=== PATIENT | female | born 1940 | race Caucasian/White ===

== ENCOUNTER 2018-01-27 17:48 | Inpatient (IN) ==
[2018-01-27] MEDS ORDERED: cloNIDine HCL 0.1 MG TABLET SL SCH ×2 (18:30→21:11)
[2018-01-27] MEDS ORDERED: cefTRIAXone 1 GM VIAL IV ONE (18:47)
[2018-01-27 19:17] LABS: ALT/SGPT 9 U/l (0-40); Albumin 4.3 gm/dL (3.2-5.2); Albumin/Globulin Ratio 1.3 (1.0-2.3); Alkaline Phosphatase 65 U/L (39-117); Basophils # (Auto) 0 K/mcL (0.0-0.3); Basophils % (Auto) 0.3 % (0.0-2.0); Blood Urea Nitrogen 14 mg/dl (8-23); C-Reactive Protein 13.3 mg/dl (0.0-0.8); Eosinophils # (Auto) 0 K/mcL (0.0-0.7); Eosinophils % (Auto) 0 % (0.0-7.0); Granulocytes % (Auto) 86.1 % (38.0-78.0); Lymphocytes % (Auto) 9.4 % (15.5-49.0); Mean Cell Volume 86.2 fL (80.0-100.0); Mean Corpuscular HGB Conc 33.6 g/dL (31.0-36.0); Mean Corpuscular Hemoglobin 28.9 pg (26.0-34.0); Monocytes # (Auto) 0.5 K/mcL (0.1-0.9); Monocytes % (Auto) 4.2 % (1.0-12.0); Platelet Count 185 K/mcL (140-440); RBC 4.66 M/mcL (4.00-5.20); Red Cell Distribution Width 16.7 % (11.5-14.5)
[2018-01-27] MEDS ORDERED: METOPROLOL SUCCINATE 25 MG TAB.XL.24H PO ONE (19:59)
--- NOTE | 2018-01-27 20:42 | Ultrasound Report ---
CLINICAL INFORMATION: Right leg pain and swelling TECHNIQUE: Grayscale and color flow Doppler spectral imaging COMPARISON: None. FINDINGS: Negative examination for deep venous thrombosis. Negative right common femoral vein, superficial femoral vein, popliteal vein. Negative calf veins. Greater and lesser saphenous veins are negative IMPRESSION: Negative right lower extremity deep venous ultrasound Interpreted and Authenticated by: Derrick Matos 01/27/18
--- NOTE | 2018-01-27 20:50 | Emergency Department Note ---
Lower Extremity Injury HPI - General Chief Complaint: Extremity Injury, Lower Stated Complaint: Right leg pain Time Seen by Provider: 01/27/18 18:11 Source: family Mode of arrival: ambulatory Limitations: no limitations - History of Present Illness HPI Narrative: 77-year-old female presents with right lower extremity redness and pain. She was treated with Bactrim a few weeks ago and it got better. She is unable to bear weight on this leg today. She has had one episode of vomiting. She also has high blood pressure because she refused her medications earlier today. She states when she first got here she had some pressure in her head but no longer feels that. She takes metoprolol as well as clonidine and nifedipine. She denies pain at rest. The right leg is warm up to the thigh. No open wounds. She takes clopidogrel. She is afebrile. - Related Data Home Medications Medication Instructions Recorded Confirmed Albuterol Sulfate [Proair Hfa] 2 puff INH QIDP PRN 06/03/16 06/03/16 Buprenorphine [Butrans] 10 mcg TD TH 06/03/16 06/07/16 Celecoxib [Celebrex] 200 mg PO DAILY 06/03/16 06/03/16 Clopidogrel [Plavix] 75 mg PO DAILY 06/03/16 06/03/16 Ferrous Sulfate 325 mg PO QAMCC 06/03/16 06/03/16 Furosemide [Lasix] 40 mg PO DAILY 06/03/16 06/03/16 Gluc HCl/Csa/Collagen/Hyalur A 1 cap PO TID 06/03/16 06/03/16 [Glucosamine Chondroitin Cap] Ipratropium [place] [Atrovent Hfa] 1 puff INH BID 06/03/16 06/03/16 Levothyroxine Sodium [Synthroid] 137 mcg PO QAMAC 06/03/16 06/03/16 Magnesium Hydroxide [Milk of 30 ml PO DAILYP PRN 06/03/16 06/03/16 Magnesia] Magnesium Oxide 400 mg PO BID 06/03/16 06/03/16 Methylcellulose (with Sugar) 1 dose PO DAILY 06/03/16 06/03/16 [Citrucel Powder] Metoprolol Succinate [Toprol Xl] 50 mg PO DAILY 06/03/16 06/03/16 NIFEdipine [Nifedical Xl] 60 mg PO DAILY 06/03/16 06/03/16 Nitroglycerin [Nitrostat] 0.4 mg SL Q5M PRN 06/03/16 06/03/16 Nystatin 1 dose TOPICAL BIDP PRN 06/03/16 06/03/16 Omeprazole [Prilosec] 20 mg PO BIDAC 06/03/16 06/03/16 Potassium Chloride [Kdur] 10 meq PO BIDCC 06/03/16 06/03/16 Sennosides [Senna Laxative] 2 tab PO HSP PRN 06/03/16 06/03/16 Simethicone [Gas-X] 80 mg PO TIDP PRN 06/03/16 06/03/16 Simvastatin [Zocor] 20 mg PO HS 06/03/16 06/03/16 Tiotropium [place] [Spiriva] 18 mcg INH DAILY 06/03/16 06/03/16 Umeclidinium [place] [Incruse 1 puff INH DAILY 06/03/16 06/03/16 Ellipta] cloNIDine HCL [Catapres] 0.2 mg PO TID 06/03/16 06/03/16 metFORMIN [Glucophage] 500 mg PO BIDCC 06/03/16 06/03/16 tiZANidine [Zanaflex] 4 mg PO TIDP PRN 06/03/16 06/03/16 traMADol [Ultram] 50 mg PO TIDP PRN 06/03/16 06/03/16 Previous Rx's Medication Instructions Recorded Cefdinir 300 mg PO BID #6 capsule 06/07/16 HYDROcodone/APAP 5/325MG [[place] 1 tab PO Q4HP PRN #20 tablet 06/07/16 5-325Mg] Allergies Allergy/AdvReac Type Severity Reaction Status Date / Time Penicillins Allergy Mild Rash Verified 06/03/16 11:58 aspirin AdvReac Mild Nausea Verified 06/03/16 11:58 codeine AdvReac Mild Vomiting Verified 06/03/16 11:58 Sulfa (Sulfonamide AdvReac Mild Vomiting Verified 06/03/16 11:58 Antibiotics) Review of Systems All systems ED: reviewed and negative except as stated. Past Medical History - Past Medical History Medical history: Reports: CHF, COPD, coronary artery disease, DM, GERD, hyperlipidemia, hypertension, thyroid disease Psychiatric history: Reports: no psych history [employer] PROFESSIONAL history: Reports: non-contributory Surgical history ED: Reports: other (hemorrhoid and back surgery) Family history: Reports: non-contributory - Social History smoking status: Unknown if ever smoked Alcohol use: Reports: None Physical Exam Right lower extremity shows erythema up to the thigh. Tender in the calf. Negative Homans sign. She has swelling in that leg but not more than the left. Limitations: no limitations General appearance: alert, in no apparent distress Head: atraumatic Eye: Present: normal appearance. Absent: conjunctival injection Neck: Present: normal inspection, full ROM Chest: Present: normal inspection, symmetric chest wall rise Respiratory: Present: normal lung sounds bilaterally Cardiovascular: Present: regular rate, normal heart sounds Abdominal: Present: soft, normal bowel sounds. Absent: tenderness Neurological: Present: alert, oriented X3 Psychiatric: Present: normal affect, normal mood Skin: Present: warm, dry, intact Course Course Narrative: Blood pressure somewhat improved with metoprolol and clonidine. She will be admitted due to severe cellulitis. She has an elevated lactic acid at 2.3. Vital Signs Temperature 98.1 F 01/27/18 17:48 Pulse Rate 86 01/27/18 17:48 Respiratory Rate 16 01/27/18 17:48 Blood Pressure 169/97 01/27/18 17:48 Pulse Oximetry (%) 98 01/27/18 17:48 Temperature 98.1 F 01/27/18 17:48 Pulse Rate 69 01/27/18 20:24 Respiratory Rate 19 01/27/18 20:24 Blood Pressure 185/78 01/27/18 20:24 Pulse Oximetry (%) 93 01/27/18 20:24 Extremity Injury, Lower - Lab Data Lab results reviewed: Yes I reviewed the patient's lab results. Result diagrams: 01/27/18 18:02 01/27/18 18:02 Lab Results 01/27/18 01/27/18 01/27/18 Range/Units 18:02 18:02 18:20 WBC 10.8 (4.5-11.0) K/mcL RBC 4.66 (4.00-5.20) M/mcL Hgb 13.5 (12.0-15.0) g/dL Hct 40.2 (36.0-48.0) % MCV 86.2 (80.0-100.0) fL MCH 28.9 (26.0-34.0) pg MCHC 33.6 (31.0-36.0) g/dL RDW 16.7 H (11.5-14.5) % Plt Count 185 (140-440) K/mcL MPV 8.0 (7.4-10.4) fL Gran % 86.1 H (38.0-78.0) % Lymph % (Auto) 9.4 L (15.5-49.0) % [place] % (Auto) 4.2 (1.0-12.0) % Eos % (Auto) 0 (0.0-7.0) % Baso % (Auto) 0.3 (0.0-2.0) % Gran # 9.3 H (1.8-8.0) K/mcL Lymph # (Auto) 1.0 L (1.5-4.8) K/mcL [place] # (Auto) 0.5 (0.1-0.9) K/mcL Eos # (Auto) 0 (0.0-0.7) K/mcL Baso # (Auto) 0 (0.0-0.3) K/mcL VBG Lactic Acid 2.3 H (0.5-2.2) mmol/L Sodium 135 (133-145) mmol/L Potassium 3.8 (3.3-5.1) mmol/L Chloride 95 L (96-108) mmol/L Carbon Dioxide 22 (22-30) mmol/L Anion Gap 18.0 H (8-16) BUN 14 (8-23) mg/dl Creatinine 0.9 (0.6-1.1) mg/dl GFR Calculation 61 Glucose 168 H (70-105) mg/dL Calcium 9.0 (8.6-10.4) mg/dl Total Bilirubin 0.6 (0.0-1.0) mg/dL AST 12 (0-37) U/l ALT 9 (0-40) U/l Alkaline Phosphatase 65 (39-117) U/L C-Reactive Protein 13.3 H (0.0-0.8) mg/dl Total Protein 7.5 (5.9-8.4) gm/dL Albumin 4.3 (3.2-5.2) gm/dL Globulin 3.2 (2.2-3.7) gm/dL Albumin/Globulin Ratio 1.3 (1.0-2.3) - Radiology Data Radiology results reviewed: Yes I reviewed the patient's radiology results. negative for DVT Disposition Pt seen by CNA INSTRUCTOR/PA only: Yes Clinical Impression: Cellulitis, Sepsis Disposition: Xfer As Inpt ([facility]) Condition: Fair Referrals: Vanessa Wills [Primary Care Provider] -
[2018-01-27] MEDS ORDERED: ACETAMINOPHEN 325 MG TABLET PO PRN (21:11)
[2018-01-27] MEDS ORDERED: VANCOMYCIN PER PHARMACY IV ONE (21:11)
[2018-01-27] MEDS ORDERED: DEXTROSE 50% 50 ML VIAL IV PRN (21:11)
[2018-01-27] MEDS ORDERED: ONDANSETRON 4 MG/2 ML VIAL IV PRN (21:11)
[2018-01-27] MEDS ORDERED: DEXTROSE 31 GM ORAL.SUSP PO PRN (21:11)
[2018-01-27] MEDS ORDERED: oxyCODONE/APAP 5/325MG TABLET PO PRN (21:11)
[2018-01-27] MEDS: METOPROLOL TARTRATE 5 MG/5 ML VIAL IV SCH (21:24)
[2018-01-27] MEDS: INSULIN LISPRO 1 UNIT/0.01 ML UNIT SQ SCH (21:43)
[2018-01-27] MEDS: 0.9 % SODIUM CHLORIDE 10 ML SYRINGE IV SCH (21:44)
[2018-01-27] MEDS ORDERED: MAGNESIUM HYDROXIDE 30 ML ORAL.SUSP PO ONE (21:56)
--- NOTE | 2018-01-27 22:03 | Internal Med History&Physical ---
Medical - H&P: HPI Patient information: Note initiated : 01/27/18 at 9:59 pm Service Date, if different from initiated Date: [] Patient: Poppy De La Rosa 77 y/o F admitted on 01/27/18 for Right leg pain. Chief Complaint: [] History of present illness: Ms. De La Rosa is a 77 year old Female who is a resident of [facility] presents to the ER today for evaluation of redness in the right leg. The patient notes that she has not been feeling well for the last 2 weeks. She notes that her leg has been bothering her, it was red and swollen. She was seen by her doctor at the [facility], who prescribed her antibiotics. It is likely that the antibiotic was Bactrim. The patient condition improved with treatment. The antibiotic was finished 3 days ago. Since this morning the patient's leg has been swollen and the patient's leg has increased erythema as well as increased warmth to touch. The patient was therefore sent to the ER for further evaluation. The patient denies any other acute symptoms. She has chronic headaches, no changes in vision or hearing no difficulty in swallowing denies any chest pain or shortness of breath she had some nausea and vomiting, no blood in the vomitus. She denies any diarrhea, has constipation notes has not passed bowel movements for a few days. She denies any urinary complaints. She has swelling in both lower extremities right more than the left, erythema on the right leg. No acute joint pains no acute skin rashes no new psychiatric complaints. Patient's daughter was by the bedside. Patient's POST form noted that the patient was DNR, however the patient's daughter noted that the patient did not wish to be DNR but wants to be full code. Patient will be treated as full code for now. In the emergency room patient was afebrile and had stable vital signs. Patient WC count was 10.8, hemoglobin 13 platelet 185. Left lites were stable creatinine 0.9 glucose 168. Patient had elevated lactic acid of 2.3. Ultrasound of the right lower extremity was negative for DVT. Given that the patient had failed outpatient treatment with Bactrim and the patient had worsening cellulitis the patient is being admitted to the hospital for further management All systems: reviewed and no additional remarkable complaints except as stated Medical - H&P: PM Medical history: Medical History Metabolic acidosis (Acute) Acute renal failure (Acute) Severe sepsis with acute organ dysfunction (Acute) Hypertension Hypothyroidism COPD Reflux disease Diabetes type 2 Degenerative joint disease Chronic pain Pertinent family history: Not relevant reviewed Social history: Lives in a care center, ex-smoker denies recreational drug use Medical - H&P: Meds Home Medications Medication Instructions Recorded Confirmed Type Albuterol Sulfate [Proair Hfa] 2 puff INH QIDP PRN 06/03/16 06/03/16 History Buprenorphine [Butrans] 10 mcg TD TH 06/03/16 06/07/16 History Celecoxib [Celebrex] 200 mg PO DAILY 06/03/16 06/03/16 History Clopidogrel [Plavix] 75 mg PO DAILY 06/03/16 06/03/16 History Ferrous Sulfate 325 mg PO QAMCC 06/03/16 06/03/16 History Furosemide [Lasix] 40 mg PO DAILY 06/03/16 06/03/16 History Gluc HCl/Csa/Collagen/Hyalur A 1 cap PO TID 06/03/16 06/03/16 History [Glucosamine Chondroitin Cap] Ipratropium [place] [Atrovent Hfa] 1 puff INH BID 06/03/16 06/03/16 History Levothyroxine Sodium [Synthroid] 137 mcg PO QAMAC 06/03/16 06/03/16 History Magnesium Hydroxide [Milk of 30 ml PO DAILYP PRN 06/03/16 06/03/16 History Magnesia] Magnesium Oxide 400 mg PO BID 06/03/16 06/03/16 History Methylcellulose (with Sugar) 1 dose PO DAILY 06/03/16 06/03/16 History [Citrucel Powder] Metoprolol Succinate [Toprol Xl] 50 mg PO DAILY 06/03/16 06/03/16 History NIFEdipine [Nifedical Xl] 60 mg PO DAILY 06/03/16 06/03/16 History Nitroglycerin [Nitrostat] 0.4 mg SL Q5M PRN 06/03/16 06/03/16 History Nystatin 1 dose TOPICAL BIDP PRN 06/03/16 06/03/16 History Omeprazole [Prilosec] 20 mg PO BIDAC 06/03/16 06/03/16 History Potassium Chloride [Kdur] 10 meq PO BIDCC 06/03/16 06/03/16 History Sennosides [Senna Laxative] 2 tab PO HSP PRN 06/03/16 06/03/16 History Simethicone [Gas-X] 80 mg PO TIDP PRN 06/03/16 06/03/16 History Simvastatin [Zocor] 20 mg PO HS 06/03/16 06/03/16 History Tiotropium [place] [Spiriva] 18 mcg INH DAILY 06/03/16 06/03/16 History Umeclidinium [place] [Incruse 1 puff INH DAILY 06/03/16 06/03/16 History Ellipta] cloNIDine HCL [Catapres] 0.2 mg PO TID 06/03/16 06/03/16 History metFORMIN [Glucophage] 500 mg PO BIDCC 06/03/16 06/03/16 History tiZANidine [Zanaflex] 4 mg PO TIDP PRN 06/03/16 06/03/16 History traMADol [Ultram] 50 mg PO TIDP PRN 06/03/16 06/03/16 History Cefdinir 300 mg PO BID #6 capsule 06/07/16 Rx HYDROcodone/APAP 5/325MG [[place] 1 tab PO Q4HP PRN #20 tablet 06/07/16 Rx 5-325Mg] Allergies Allergy/AdvReac Type Severity Reaction Status Date / Time Penicillins Allergy Mild Rash Verified 06/03/16 11:58 aspirin AdvReac Mild Nausea Verified 06/03/16 11:58 codeine AdvReac Mild Vomiting Verified 06/03/16 11:58 Sulfa (Sulfonamide AdvReac Mild Vomiting Verified 06/03/16 11:58 Antibiotics) Medical - H&P: Exam - Constitutional Vitals: Temp Pulse Resp BP Pulse Ox 98.1 F 70 20 158/69 93 01/27/18 21:15 01/27/18 21:15 01/27/18 21:15 01/27/18 21:15 01/27/18 21:15 Exam: GENERAL: The patient is a well-developed, well-nourished in no apparent distress. Is sleepy today but oriented x3. VITAL SIGNS: Reviewed and as noted elsewhere. HEENT: Head is normocephalic and atraumatic. Extraocular muscles are intact. Pupils are equal, round, and reactive to light. Nares appeared normal. Mouth appears any without lesions. Mucous membranes are dry NECK: Normal to inspection, Supple, No lymphadenopathy or thyromegaly. LUNGS: Air entry equal on both sides, no wheezing, crackles or rhonchi noted. No accessory muscles of respiration HEART: Regular rate and rhythm normal, S1 and S2 heard, no Gallop, S3 or Rub Noted, ABDOMEN: Soft, nontender, and nondistended. Hypoactive bowel sounds. No hepatosplenomegaly was noted. EXTREMITIES: No cyanosis, clubbing, rash, lesions or edema. Right lower extremity has erythema, erythema extends from above the ankle to lower one third of the thigh, no crepitus no skip lesions noted, pedal pulses present NEUROLOGIC: Cranial nerves II through XII are grossly intact. Motor and Sensory System Grossly Intact PSYCHIATRIC: Normal affect, Normal Mood. Appropriate Behavior. SKIN: No ulceration or wounds noted, No jaundice, No rash noted. [except as mentioned above] Medical - H&P: Reslt - Labs CBC & Chem 7: 01/27/18 18:02 01/27/18 18:02 Labs: Short CBC 01/27/18 Range/Units 18:02 WBC 10.8 (4.5-11.0) K/mcL Hgb 13.5 (12.0-15.0) g/dL Hct 40.2 (36.0-48.0) % Plt Count 185 (140-440) K/mcL BMP 01/27/18 18:02 Sodium 135 Potassium 3.8 Chloride 95 L Carbon Dioxide 22 BUN 14 Creatinine 0.9 Glucose 168 H Calcium 9.0 Liver Function 01/27/18 Range/Units 18:02 Total Bilirubin 0.6 (0.0-1.0) mg/dL AST 12 (0-37) U/l ALT 9 (0-40) U/l Alkaline Phosphatase 65 (39-117) U/L Albumin 4.3 (3.2-5.2) gm/dL Medical - H&P: A/P - Narrative A/P Narrative: A/P Cellulitis, failed outpatient treatment Lactic Acidosis Diabetes Hypertension Chronic Pain Hypothyroidism Degenerative Joint Disease Constipation secondary to opiates? Plan Admit to med surg IV fluids and IV antibiotics lactic acidosis secondary to metformin vs infection. Pt otherwise does not appear very sick trend lactate IV ceftazidine and IV vancomycin for cellulitis for now blood cultures sent, await results Resume home medications as appropriate Monitor blood pressure Full code Diabetic diet Heparin subcutaneous for DVT prophylaxis Plan of care reviewed with the patient and the daughter they had no complaints or concerns
[2018-01-27] MEDS: cefTAZidime 1 GM VIAL IV SCH (22:15)
[2018-01-27] MEDS: metroNIDAZOLE 500 MG/100 ML BAG IV SCH (22:16)
[2018-01-27] MEDS ORDERED: MAGNESIUM HYDROXIDE 30 ML ORAL.SUSP ONE (22:25)
[2018-01-27] MEDS: HEPARIN 5,000 UNIT/ML VIAL SQ SCH (22:35)
[2018-01-27] MEDS: VANCOMYCIN 1,000 MG in 0.9 % SODIUM CHLORIDE 250 ML IV SCH (23:40)
[2018-01-28] MEDS: metroNIDAZOLE 500 MG/100 ML BAG IV SCH ×3 (06:10→21:47)
[2018-01-28 06:11] LABS: Basophils # (Auto) 0 K/mcL (0.0-0.3); Basophils % (Auto) 0.1 % (0.0-2.0); Eosinophils # (Auto) 0.2 K/mcL (0.0-0.7); Eosinophils % (Auto) 3.8 % (0.0-7.0); Granulocytes % (Auto) 77.7 % (38.0-78.0); Lymphocytes # (Auto) 0.6 K/mcL (1.5-4.8); Lymphocytes % (Auto) 10.8 % (15.5-49.0); Mean Cell Volume 85.1 fL (80.0-100.0); Mean Corpuscular HGB Conc 33.8 g/dL (31.0-36.0); Mean Corpuscular Hemoglobin 28.7 pg (26.0-34.0); Monocytes # (Auto) 0.5 K/mcL (0.1-0.9); Monocytes % (Auto) 7.6 % (1.0-12.0); Platelet Count 150 K/mcL (140-440); RBC 3.78 M/mcL (4.00-5.20); Red Cell Distribution Width 16.3 % (11.5-14.5)
[2018-01-28] MEDS: 0.9 % SODIUM CHLORIDE 10 ML SYRINGE IV SCH ×3 (06:33→21:06)
[2018-01-28 06:47] LABS: ALT/SGPT 7 U/l (0-40); Albumin 3.1 gm/dL (3.2-5.2); Albumin/Globulin Ratio 1.1 (1.0-2.3); Alkaline Phosphatase 50 U/L (39-117); Bilirubin,Direct < 0.2 mg/dL (0.0-0.3); Blood Urea Nitrogen 13 mg/dl (8-23); Gamma Glutamyl Transpeptidase 8 U/L (5-36); Uric Acid 4.8 mg/dL (2.5-8.0)
[2018-01-28] MEDS ORDERED: VANCOMYCIN PER PHARMACY IV SCH (07:15)
[2018-01-28] MEDS: INSULIN LISPRO 1 UNIT/0.01 ML UNIT SQ SCH ×5 (08:25→21:07)
[2018-01-28] MEDS: cefTAZidime 1 GM VIAL IV SCH ×2 (09:51→21:47)
[2018-01-28] MEDS: POLYETHYLENE GLYCOL 3350 17 GM PACKET PO SCH (09:51)
[2018-01-28] MEDS: HEPARIN 5,000 UNIT/ML VIAL SQ SCH ×2 (09:52→21:05)
[2018-01-28] MEDS ORDERED: BISACODYL 10 MG SUPP.RECT PR PRN (12:16)
[2018-01-28] MEDS ORDERED: NITROGLYCERIN 0.4 MG TAB.SUBL SL PRN (12:16)
[2018-01-28] MEDS ORDERED: ALBUTEROL SULFATE 1 PUFF INHALER IH PRN (12:16)
[2018-01-28] MEDS ORDERED: MAGNESIUM HYDROXIDE 30 ML ORAL.SUSP PO PRN (12:16)
--- NOTE | 2018-01-28 12:21 | Internal Med Progress Note ---
Medical - PN: Subj Patient information: Note initiated : 01/28/18 at 12:14 pm Service Date, if different from initiated Date: [] Patient: Poppy De La Rosa 77 y/o F admitted on 01/27/18 for Right leg pain. Chief Complaint: [] Interval history: Ms. De aL Rosa is a 77 year old Female who is a resident of [facility] presents to the ER today for evaluation of redness in the right leg. The patient notes that she has not been feeling well for the last 2 weeks. She notes that her leg has been bothering her, it was red and swollen. She was seen by her doctor at the [facility], who prescribed her antibiotics. It is likely that the antibiotic was Bactrim. The patient condition improved with treatment. The antibiotic was finished 3 days ago. Since this morning the patient's leg has been swollen and the patient's leg has increased erythema as well as increased warmth to touch. The patient was therefore sent to the ER for further evaluation. The patient denies any other acute symptoms. She has chronic headaches, no changes in vision or hearing no difficulty in swallowing denies any chest pain or shortness of breath she had some nausea and vomiting, no blood in the vomitus. She denies any diarrhea, has constipation notes has not passed bowel movements for a few days. She denies any urinary complaints. She has swelling in both lower extremities right more than the left, erythema on the right leg. No acute joint pains no acute skin rashes no new psychiatric complaints. Patient's daughter was by the bedside. Patient's POST form noted that the patient was DNR, however the patient's daughter noted that the patient did not wish to be DNR but wants to be full code. Patient will be treated as full code for now. In the emergency room patient was afebrile and had stable vital signs. Patient WC count was 10.8, hemoglobin 13 platelet 185. Left lites were stable creatinine 0.9 glucose 168. Patient had elevated lactic acid of 2.3. Ultrasound of the right lower extremity was negative for DVT. Given that the patient had failed outpatient treatment with Bactrim and the patient had worsening cellulitis the patient is being admitted to the hospital for further management January 28 Patient seen and examined, no acute overnight events, cellulitis in the leg is much improved. Lactic acid is normal now. Patient much more awake this morning tolerating p.o. diet well still did not have bowel movements taking MiraLAX at this point. TSH is elevated at 7.67, patient is on levothyroxine. Pertinent ROS: Denies headache, dizziness Denies chest pain, palpitations Denies cough or shortness of breath Denies abdominal pain, nausea or vomiting. - Constitutional Vitals: Vital Signs Temp Pulse Resp BP Pulse Ox 97.8 F 64 16 136/80 94 01/28/18 07:56 01/28/18 04:00 01/28/18 07:56 01/28/18 07:56 01/28/18 07:56 Period Temp Pulse Resp BP Sys/Gonzales Pulse Ox Last 24 Hr 97.8 F-98.8 F 64-86 16-24 134-208/69-97 90-98 Intake and Output 01/27/18 01/28/18 01/28/18 21:59 05:59 13:59 Intake Total 450 / 450 100 / 100 Output Total / 2 / 2 2 / 2 Balance -1 / -1 448 / 448 98 / 98 Weight 157 lb Intake & Output: Intake & Output 01/27/18 01/28/18 01/28/18 21:59 05:59 13:59 Intake Total 450 / 450 100 / 100 Output Total / 2 / 2 2 / 2 Balance -1 / -1 448 / 448 98 / 98 Weight 157 lb Intake: IV 350 / 350 100 / 100 Vancomycin 1,000 mg In Sodium 250 / 250 Chloride 0.9% 250 ml @ 250 mls/ hr IV DAILY [facility] Rx#:[id number] Oral 100 / 100 Output: # of times incontinent of urine / 2 / 2 2 / 2 Other: # Voids 1 Exam: Constitutional; Afebrile, cooperative, alert, not in distress. Eyes- No icterus, , No periorbital swelling Ears- Ext ear normal, hearing normal to conversation. Neck- Midline trachea, supple Respiratory system: Air Entry equal on both sides, No crackles or wheezing, no rhonchi. CVS- Rate rhythm regular, S1,S2 heard, no gallop, no rub. Abdomen- Soft nontender abdomen, no organomegaly, no tenderness, no guarding or rigidity, [employer]ING [employer]- AOOx3, moving all extremities, no gross focal deficit noted. Right leg: Area of erythema and now is below the knee joint. Medical - PN: Obj Da - Labs CBC & Chem 7: 01/28/18 04:50 01/28/18 04:50 Labs: Abnormal Lab Results 01/28/18 01/28/18 01/27/18 04:50 04:50 18:20 RBC 3.78 L Hgb 10.9 L Hct 32.1 L RDW 16.3 H Gran % Lymph % (Auto) 10.8 L Gran # Lymph # (Auto) 0.6 L VBG Lactic Acid 2.3 H Chloride Anion Gap Glucose 109 H Calcium 8.2 L C-Reactive Protein Total Protein 5.8 L Albumin 3.1 L TSH 7.67 H 01/27/18 01/27/18 18:02 18:02 RBC Hgb Hct RDW 16.7 H Gran % 86.1 H Lymph % (Auto) 9.4 L Gran # 9.3 H Lymph # (Auto) 1.0 L VBG Lactic Acid Chloride 95 L Anion Gap 18.0 H Glucose 168 H Calcium C-Reactive Protein 13.3 H Total Protein Albumin TSH Meds: Medications Acetaminophen (Tylenol) 650 mg PO Q6HP PRN PRN Reason: PAIN/FEVER > 101 Ceftazidime (Fortaz) 1 gm IV Q12H [facility] Last Admin: 01/28/18 09:51 Dose: 1 gm Dextrose (Dextrose 50%) 0 ml IV UD PRN PRN Reason: Hypoglycemia Diagnostic Test (Pha) (Accu-Chek) 1 each FS ACHS [facility] Last Admin: 01/28/18 08:25 Dose: 1 each Glucose (Insta-Glucose) 15 gm PO PRN PRN PRN Reason: Hypoglycemia Heparin Sodium (Porcine) (Heparin) 5,000 unit SQ Q12 [facility] Last Admin: 01/28/18 09:52 Dose: 5,000 unit Metronidazole (Flagyl) 500 mg in 100 mls @ 100 mls/hr IV Q8H [facility] Last Infusion: 01/28/18 07:15 Dose: Infused Vancomycin HCl 1,000 mg/ (Sodium Chloride) 250 mls @ 250 mls/hr IV DAILY [facility] Last Infusion: 01/28/18 00:45 Dose: Infused Insulin Human Lispro (Humalog) 0 unit SQ ACHS [facility] PRN Reason: Protocol Last Admin: 01/28/18 08:25 Dose: Not Given Ondansetron HCl (Zofran) 4 mg IV Q6HP PRN PRN Reason: Nausea And Vomiting Oxycodone/Acetaminophen (Percocet 5-325 Mg) 1 tab PO Q4HP PRN PRN Reason: PAIN LEVEL 3-6 Polyethylene Glycol (Miralax) 17 gm PO DAILY [facility] Last Admin: 01/28/18 09:51 Dose: 17 gm Sodium Chloride (Saline Flush) 10 ml IV Q8 [facility] Last Admin: 01/28/18 06:33 Dose: Not Given Vancomycin HCl (Vancomycin Per Pharmacy) 1 order IV UD [facility] Medical - PN: A/P - Time Spent With Patient Total time spent is greater than 50% in coordination of care (as documented) at patient's floor/unit and/or counseling patient: - Narrative A/P Narrative: A/P Cellulitis, failed outpatient treatment Lactic Acidosis Diabetes Hypertension Chronic Pain Hypothyroidism Degenerative Joint Disease Constipation secondary to opiates? Plan Continue to monitor Continue IV fluids and antibiotics, today is day 2 of vancomycin and ceftazidime MiraLAX for constipation Resume home blood pressure medications and other home medications Hypothyroidism follow-up as an outpatient Continue to hold metformin in light of lactic acidosis, lactic acidosis now resolved IV fluids and IV antibiotics Full code Diabetic diet Heparin subcutaneous for DVT prophylaxis Medical - PN: Qual - VTE Deep Vein Thrombosis/Pulmonary Embolism Present on Admission: No
[2018-01-28] MEDS: VANCOMYCIN 1,000 MG in 0.9 % SODIUM CHLORIDE 250 ML IV SCH (12:49)
[2018-01-28] MEDS: NIFEdipine 30 MG TAB.XL.24H PO SCH (13:25)
[2018-01-28] MEDS: cloNIDine HCL 0.1 MG TABLET PO SCH ×2 (13:26→21:05)
[2018-01-28] MEDS: METOPROLOL SUCCINATE 50 MG TAB.XL.24H PO SCH (13:26)
[2018-01-28] MEDS: GLUCOSAMINE/CHONDROITIN SULF A 1 CAP CAPSULE PO SCH ×2 (14:39→21:05)
[2018-01-28] MEDS: POTASSIUM CHLORIDE 10 MEQ TABLET PO SCH (17:56)
[2018-01-28] MEDS: traMADol 50 MG TABLET PO SCH (21:04)
[2018-01-28] MEDS: MAGNESIUM OXIDE 400 MG TABLET PO SCH (21:04)
[2018-01-28] MEDS: SIMVASTATIN 20 MG TABLET PO SCH (21:05)
[2018-01-28] MEDS: IPRATROPIUM BROMIDE 1 PUFF INHALER INH SCH (22:22)
[2018-01-29] MEDS: metroNIDAZOLE 500 MG/100 ML BAG IV SCH ×2 (05:09→14:27)
[2018-01-29] MEDS: 0.9 % SODIUM CHLORIDE 10 ML SYRINGE IV SCH ×3 (05:10→21:39)
[2018-01-29 06:02] LABS: Basophils # (Auto) 0 K/mcL (0.0-0.3); Basophils % (Auto) 0.5 % (0.0-2.0); Eosinophils # (Auto) 0.2 K/mcL (0.0-0.7); Eosinophils % (Auto) 4.4 % (0.0-7.0); Granulocytes % (Auto) 67.8 % (38.0-78.0); Lymphocytes # (Auto) 0.8 K/mcL (1.5-4.8); Lymphocytes % (Auto) 17.8 % (15.5-49.0); Mean Cell Volume 85.7 fL (80.0-100.0); Mean Corpuscular HGB Conc 33.5 g/dL (31.0-36.0); Mean Corpuscular Hemoglobin 28.7 pg (26.0-34.0); Monocytes # (Auto) 0.4 K/mcL (0.1-0.9); Monocytes % (Auto) 9.5 % (1.0-12.0); Platelet Count 155 K/mcL (140-440); RBC 4.06 M/mcL (4.00-5.20); Red Cell Distribution Width 16.3 % (11.5-14.5)
[2018-01-29 06:33] LABS: ALT/SGPT 9 U/l (0-40); Albumin 3.4 gm/dL (3.2-5.2); Albumin/Globulin Ratio 1.2 (1.0-2.3); Alkaline Phosphatase 61 U/L (39-117); Bilirubin,Direct < 0.2 mg/dL (0.0-0.3); Blood Urea Nitrogen 12 mg/dl (8-23); Gamma Glutamyl Transpeptidase 11 U/L (5-36); Uric Acid 4.1 mg/dL (2.5-8.0)
[2018-01-29] MEDS: NIFEdipine 30 MG TAB.XL.24H PO SCH (08:47)
[2018-01-29] MEDS: MELOXICAM 7.5 MG TABLET PO SCH (08:48)
[2018-01-29] MEDS: FUROSEMIDE 40 MG TABLET PO SCH (08:48)
[2018-01-29] MEDS: GLUCOSAMINE/CHONDROITIN SULF A 1 CAP CAPSULE PO SCH ×3 (08:49→20:43)
[2018-01-29] MEDS: cloNIDine HCL 0.1 MG TABLET PO SCH ×3 (08:49→20:43)
[2018-01-29] MEDS: FERROUS SULFATE 325 MG TABLET PO SCH (08:51)
[2018-01-29] MEDS: METOPROLOL SUCCINATE 50 MG TAB.XL.24H PO SCH (08:52)
[2018-01-29] MEDS: LEVOTHYROXINE 75 MCG TABLET PO SCH (08:52)
[2018-01-29] MEDS: HEPARIN 5,000 UNIT/ML VIAL SQ SCH ×2 (08:53→20:43)
[2018-01-29] MEDS: INSULIN LISPRO 1 UNIT/0.01 ML UNIT SQ SCH ×4 (08:55→20:47)
[2018-01-29] MEDS: PANTOPRAZOLE 40 MG PACKET PO SCH (08:56)
[2018-01-29] MEDS: CLOPIDOGREL 75 MG TABLET PO SCH (09:00)
[2018-01-29] MEDS ORDERED: NIFEdipine 30 MG TAB.XL.24H PO SCH (09:00)
[2018-01-29] MEDS: POLYETHYLENE GLYCOL 3350 17 GM PACKET PO SCH (09:00)
[2018-01-29] MEDS: POTASSIUM CHLORIDE 10 MEQ TABLET PO SCH ×2 (09:00→16:38)
[2018-01-29] MEDS: MAGNESIUM OXIDE 400 MG TABLET PO SCH ×2 (09:00→20:43)
[2018-01-29] MEDS: VANCOMYCIN 1,000 MG in 0.9 % SODIUM CHLORIDE 250 ML IV SCH (10:57)
[2018-01-29] MEDS: cefTAZidime 1 GM VIAL IV SCH ×2 (10:57→21:39)
[2018-01-29] MEDS: IPRATROPIUM BROMIDE 1 PUFF INHALER INH SCH ×2 (11:11→20:47)
[2018-01-29] MEDS ORDERED: MAGNESIUM CITRATE 300 ML ORAL.SOL PO ONE (14:52)
--- NOTE | 2018-01-29 14:52 | Internal Med Progress Note ---
Medical - PN: Subj Patient information: Note initiated : 01/29/18 at 2:47 pm Service Date, if different from initiated Date: [] Patient: Poppy De La Rosa 77 y/o F admitted on 01/27/18 for Right leg pain. Chief Complaint: [] Interval history: Ms. De La Rosa is a 77 year old Female who is a resident of [facility] presents to the ER today for evaluation of redness in the right leg. The patient notes that she has not been feeling well for the last 2 weeks. She notes that her leg has been bothering her, it was red and swollen. She was [facility], who prescribed her antibiotics. It is likely that the antibiotic was Bactrim. The patient condition improved with treatment. The antibiotic was finished 3 days ago. Since this morning the patient's leg has been swollen and the patient's leg has increased erythema as well as increased warmth to touch. The patient was therefore sent to the ER for further evaluation. The patient denies any other acute symptoms. She has chronic headaches, no changes in vision or hearing no difficulty in swallowing denies any chest pain or shortness of breath she had some nausea and vomiting, no blood in the vomitus. She denies any diarrhea, has constipation notes has not passed bowel movements for a few days. She denies any urinary complaints. She has swelling in both lower extremities right more than the left, erythema on the right leg. No acute joint pains no acute skin rashes no new psychiatric complaints. Patient's daughter was by the bedside. Patient's POST form noted that the patient was DNR, however the patient's daughter noted that the patient did not wish to be DNR but wants to be full code. Patient will be treated as full code for now. In the emergency room patient was afebrile and had stable vital signs. Patient WC count was 10.8, hemoglobin 13 platelet 185. Left lites were stable creatinine 0.9 glucose 168. Patient had elevated lactic acid of 2.3. Ultrasound of the right lower extremity was negative for DVT. Given that the patient had failed outpatient treatment with Bactrim and the patient had worsening cellulitis the patient is being admitted to the hospital for further management January 28 Patient seen and examined, no acute overnight events, cellulitis in the leg is much improved. Lactic acid is normal now. Patient much more awake this morning tolerating p.o. diet well still did not have bowel movements taking MiraLAX at this point. TSH is elevated at 7.67, patient is on levothyroxine. january 29 pt seen examined, no acute overnight issues, pt lying in bed comfortable, reading a news paper She has still not had a bowel movement, plan to get x ray and give magnesium citrate to see if this helps patient labs improving cellulitis resolving rapidly ok for d/c by tomorrow back [facility]. Pertinent ROS: Denies headache, dizziness Denies chest pain, palpitations Denies cough or shortness of breath Denies abdominal pain, nausea or vomiting. - Constitutional Vitals: Vital Signs Temp Pulse Resp BP Pulse Ox 96.8 F L 62 16 148/92 97 01/29/18 11:56 01/29/18 04:00 01/29/18 11:56 01/29/18 11:56 01/29/18 11:56 Period Temp Pulse Resp BP Sys/Gonzales Pulse Ox Last 24 Hr 96.8 F-98.4 F 62-77 16-18 138-182/76-96 95-97 Intake and Output 01/29/18 01/29/18 01/29/18 05:59 13:59 21:59 Intake Total 100 / 100 350 / 350 Output Total Balance -102 / -102 350 / 350 Weight 158 lb 8 oz Patient Weight 01/30/18 05:59 Weight 158 lb 8 oz Intake & Output: Intake & Output 01/29/18 01/29/18 01/29/18 05:59 13:59 21:59 Intake Total 100 / 100 350 / 350 Output Total Balance -102 / -102 350 / 350 Weight 158 lb 8 oz Intake: IV 100 / 100 350 / 350 Vancomycin 1,000 mg In Sodium 250 / 250 Chloride 0.9% 250 ml @ 250 mls/ hr IV DAILY [facility] Rx#:[id number] Output: Void Amount 200 / 200 # of times incontinent of urine 2 / 2 Exam: Constitutional; Afebrile, cooperative, alert, not in distress. Eyes- No icterus, , No periorbital swelling Ears- Ext ear normal, hearing normal to conversation. Neck- Midline trachea, supple Respiratory system: Air Entry equal on both sides, No crackles or wheezing, no rhonchi. CVS- Rate rhythm regular, S1,S2 heard, no gallop, no rub. Abdomen- Soft nontender abdomen, no organomegaly, no tenderness, no guarding or rigidity, QUALITY ANALYST- AOOx3, moving all extremities, no gross focal deficit noted. Right lower extremity, swelling and erythema much better, pt has chr venous stasis. Medical - PN: Obj Da - Labs CBC & Chem 7: 01/29/18 04:55 01/29/18 04:55 Labs: Abnormal Lab Results 01/29/18 01/29/18 01/28/18 04:55 04:55 04:50 WBC 4.4 L RBC Hgb 11.7 L Hct 34.8 L RDW 16.3 H Gran % Lymph % (Auto) Gran # Lymph # (Auto) 0.8 L VBG Lactic Acid Chloride Anion Gap Glucose 109 H Calcium 8.2 L Phosphorus 2.5 L C-Reactive Protein Total Protein 5.8 L Albumin 3.1 L TSH 7.67 H 01/28/18 01/27/18 01/27/18 04:50 18:20 18:02 WBC RBC 3.78 L Hgb 10.9 L Hct 32.1 L RDW 16.3 H Gran % Lymph % (Auto) 10.8 L Gran # Lymph # (Auto) 0.6 L VBG Lactic Acid 2.3 H Chloride 95 L Anion Gap 18.0 H Glucose 168 H Calcium Phosphorus C-Reactive Protein 13.3 H Total Protein Albumin TSH 01/27/18 18:02 WBC RBC Hgb Hct RDW 16.7 H Gran % 86.1 H Lymph % (Auto) 9.4 L Gran # 9.3 H Lymph # (Auto) 1.0 L VBG Lactic Acid Chloride Anion Gap Glucose Calcium Phosphorus C-Reactive Protein Total Protein Albumin TSH Meds: Medications Acetaminophen (Tylenol) 650 mg PO Q6HP PRN PRN Reason: PAIN/FEVER > 101 Albuterol Sulfate (Ventolin) 2 puff IH Q6HP PRN PRN Reason: Shortness Of Breath Bisacodyl (Dulcolax) 10 mg GA DAILYP PRN PRN Reason: Constipation Ceftazidime (Fortaz) 1 gm IV Q12H [facility] Last Admin: 01/29/18 10:57 Dose: 1 gm Clonidine HCl (Catapres) 0.2 mg PO TID [facility] Last Admin: 01/29/18 14:28 Dose: 0.2 mg Clopidogrel Bisulfate (Plavix) 75 mg PO DAILY [facility] Last Admin: 01/29/18 09:00 Dose: 75 mg Dextrose (Dextrose 50%) 0 ml IV UD PRN PRN Reason: Hypoglycemia Diagnostic Test (Pha) (Accu-Chek) 1 each FS ACHS [facility] Last Admin: 01/29/18 12:58 Dose: 1 each Ferrous Sulfate (Ferrous Sulfate) 325 mg PO QAMCC [facility] Last Admin: 01/29/18 08:51 Dose: 325 mg Furosemide (Lasix) 40 mg PO DAILY [facility] Last Admin: 01/29/18 08:48 Dose: 40 mg Glucosamine/Chondroitin (Glucosamine-Chondroitin Cap) 1 cap PO TID [facility] Last Admin: 01/29/18 08:49 Dose: 1 cap Glucose (Insta-Glucose) 15 gm PO PRN PRN PRN Reason: Hypoglycemia Heparin Sodium (Porcine) (Heparin) 5,000 unit SQ Q12 [facility] Last Admin: 01/29/18 08:53 Dose: 5,000 unit Metronidazole (Flagyl) 500 mg in 100 mls @ 100 mls/hr IV Q8H [facility] Last Admin: 01/29/18 14:27 Dose: 100 mls/hr Vancomycin HCl 1,000 mg/ (Sodium Chloride) 250 mls @ 250 mls/hr IV DAILY [facility] Last Infusion: 01/29/18 12:25 Dose: Infused Insulin Human Lispro (Humalog) 0 unit SQ ACHS [facility] PRN Reason: Protocol Last Admin: 01/29/18 12:58 Dose: Not Given Ipratropium [place] (Atrovent Hfa) 1 puff INH BID [facility] Last Admin: 01/29/18 11:11 Dose: Not Given Levothyroxine Sodium (Synthroid) 75 mcg PO QAMAC [facility] Last Admin: 01/29/18 08:52 Dose: 75 mcg Magnesium Hydroxide (Milk Of Magnesia) 30 ml PO Q72H PRN PRN Reason: Constipation Last Admin: 01/29/18 12:31 Dose: 30 ml Magnesium Oxide (Magnesium Oxide) 400 mg PO BID [facility] Last Admin: 01/29/18 09:00 Dose: 400 mg Meloxicam (Mobic) 15 mg PO DAILY [facility] Last Admin: 01/29/18 08:48 Dose: 15 mg Metoprolol Succinate (Toprol Xl) 50 mg PO DAILY [facility] Last Admin: 01/29/18 08:52 Dose: 50 mg Nifedipine (Procardia Xl) 60 mg PO DAILY [facility] Last Admin: 01/29/18 08:47 Dose: 60 mg Nitroglycerin (Nitrostat) 0.4 mg SL Q5M PRN PRN Reason: Chest Pain Ondansetron HCl (Zofran) 4 mg IV Q6HP PRN PRN Reason: Nausea And Vomiting Oxycodone/Acetaminophen (Percocet 5-325 Mg) 1 tab PO Q4HP PRN PRN Reason: PAIN LEVEL 3-6 Pantoprazole Sodium (Protonix) 40 mg PO QAMAC [facility] Last Admin: 01/29/18 08:56 Dose: 40 mg Polyethylene Glycol (Miralax) 17 gm PO DAILY [facility] Last Admin: 01/29/18 09:00 Dose: 17 gm Potassium Chloride (Kdur) 10 meq PO BIDCC [facility] Last Admin: 01/28/18 17:56 Dose: 10 meq Simvastatin (Zocor) 20 mg PO HS [facility] Last Admin: 01/28/18 21:05 Dose: 20 mg Sodium Chloride (Saline Flush) 10 ml IV Q8 [facility] Last Admin: 01/29/18 14:28 Dose: 10 ml Tramadol HCl (Ultram) 50 mg PO HS [facility] Last Admin: 01/28/18 21:04 Dose: 50 mg Vancomycin HCl (Vancomycin Per Pharmacy) 1 order IV UD [facility] Medical - PN: A/P - Time Spent With Patient Total time spent is greater than 50% in coordination of care (as documented) at patient's floor/unit and/or counseling patient: - Narrative A/P Narrative: A/P Cellulitis, failed outpatient treatment Lactic Acidosis Diabetes Hypertension Chronic Pain Hypothyroidism Degenerative Joint Disease Constipation secondary to opiates? Plan Continue to monitor Continue IV fluids and antibiotics, today is day 3 of vancomycin and ceftazidime MiraLAX for constipation, did not help, much, plan to get x ray abdomen and give mag citrate Resume home blood pressure medications and other home medications Hypothyroidism follow-up as an outpatient Continue to hold metformin in light of lactic acidosis, lactic acidosis now resolved Full code Diabetic diet Heparin subcutaneous for DVT prophylaxis Medical - PN: Qual - VTE Deep Vein Thrombosis/Pulmonary Embolism Present on Admission: No
[2018-01-29] MEDS ORDERED: cloNIDine HCL 0.1 MG TABLET PO SCH (15:00)
[2018-01-29] MEDS ORDERED: MINERAL OIL 1 DOSE ENEMA PR ONE (19:22)
[2018-01-29] MEDS: SIMVASTATIN 20 MG TABLET PO SCH (20:43)
[2018-01-29] MEDS: traMADol 50 MG TABLET PO SCH (21:39)
[2018-01-30] MEDS: 0.9 % SODIUM CHLORIDE 10 ML SYRINGE IV SCH (04:44)
[2018-01-30 05:37] LABS: Basophils # (Auto) 0 K/mcL (0.0-0.3); Basophils % (Auto) 0.5 % (0.0-2.0); Eosinophils # (Auto) 0.1 K/mcL (0.0-0.7); Eosinophils % (Auto) 3.8 % (0.0-7.0); Granulocytes % (Auto) 64.1 % (38.0-78.0); Lymphocytes # (Auto) 0.8 K/mcL (1.5-4.8); Lymphocytes % (Auto) 21.3 % (15.5-49.0); Mean Cell Volume 84.8 fL (80.0-100.0); Mean Corpuscular HGB Conc 33.9 g/dL (31.0-36.0); Mean Corpuscular Hemoglobin 28.7 pg (26.0-34.0); Monocytes # (Auto) 0.4 K/mcL (0.1-0.9); Monocytes % (Auto) 10.3 % (1.0-12.0); Platelet Count 171 K/mcL (140-440); RBC 4.13 M/mcL (4.00-5.20); Red Cell Distribution Width 15.9 % (11.5-14.5)
[2018-01-30 06:12] LABS: ALT/SGPT 11 U/l (0-40); Albumin 3.5 gm/dL (3.2-5.2); Albumin/Globulin Ratio 1.5 (1.0-2.3); Alkaline Phosphatase 47 U/L (39-117); Bilirubin,Direct < 0.2 mg/dL (0.0-0.3); Blood Urea Nitrogen 15 mg/dl (8-23); Gamma Glutamyl Transpeptidase 11 U/L (5-36); Uric Acid 4.5 mg/dL (2.5-8.0)
[2018-01-30] MEDS: POTASSIUM CHLORIDE 10 MEQ TABLET PO SCH (09:57)
[2018-01-30] MEDS: MELOXICAM 7.5 MG TABLET PO SCH (09:57)
[2018-01-30] MEDS: NIFEdipine 30 MG TAB.XL.24H PO SCH (09:57)
[2018-01-30] MEDS: LEVOTHYROXINE 75 MCG TABLET PO SCH (09:58)
[2018-01-30] MEDS: GLUCOSAMINE/CHONDROITIN SULF A 1 CAP CAPSULE PO SCH (09:58)
[2018-01-30] MEDS: FUROSEMIDE 40 MG TABLET PO SCH (09:58)
[2018-01-30] MEDS: FERROUS SULFATE 325 MG TABLET PO SCH (09:58)
[2018-01-30] MEDS: METOPROLOL SUCCINATE 50 MG TAB.XL.24H PO SCH (09:58)
[2018-01-30] MEDS: CLOPIDOGREL 75 MG TABLET PO SCH (09:58)
[2018-01-30] MEDS: cloNIDine HCL 0.1 MG TABLET PO SCH (09:58)
[2018-01-30] MEDS: HEPARIN 5,000 UNIT/ML VIAL SQ SCH (09:58)
[2018-01-30] MEDS: INSULIN LISPRO 1 UNIT/0.01 ML UNIT SQ SCH (10:00)
[2018-01-30] MEDS: IPRATROPIUM BROMIDE 1 PUFF INHALER INH SCH (10:00)
[2018-01-30] MEDS: MAGNESIUM OXIDE 400 MG TABLET PO SCH (10:01)
[2018-01-30] MEDS: POLYETHYLENE GLYCOL 3350 17 GM PACKET PO SCH (10:02)
[2018-01-30] MEDS: PANTOPRAZOLE 40 MG PACKET PO SCH (10:07)
[2018-01-30] MEDS: cefTAZidime 1 GM VIAL IV SCH (10:10)
--- NOTE | 2018-01-30 10:26 | XRay Report ---
CLINICAL INFORMATION: Constipation COMPARISON: 05/29/2016 FINDINGS: Stool gas pattern is unremarkable. No free air, soft tissue mass or organomegaly. IMPRESSION: Negative Interpreted and Authenticated by: Derrick Julien 01/30/18
--- NOTE | 2018-01-30 11:53 | Discharge Summary ---
Medical - DS: Prov Patient information: Note initiated : 01/30/18 at 11:51 am Service Date, if different from initiated Date: [] Patient: Poppy De La Rosa 77 y/o F admitted on 01/27/18 for Right Leg Pain/ Cellulitis. Date of admission: 01/27/18 21:02 Discharge date: 01/30/18 Primary care physician: Vanessa Wills Medical - DS: Meds - Discharge Medications Active and Home Medications: Home Medications Clopidogrel [Plavix] 75 mg PO DAILY 06/03/16 [History Confirmed 01/28/18 Last Taken 01/26/18] Ferrous Sulfate 325 mg PO QAMCC 06/03/16 [History Confirmed 01/28/18 Last Taken 01/26/18] Furosemide [Lasix] 40 mg PO DAILY 06/03/16 [History Confirmed 01/28/18 Last Taken 01/26/18] Gluc HCl/Csa/Collagen/Hyalur A [Glucosamine Chondroitin Cap] 1 cap PO TID [History Confirmed 01/28/18 Last Taken 01/26/18] Ipratropium [place] [Atrovent Hfa] 1 puff INH BID 06/03/16 [History Confirmed Last Taken 01/26/18] Levothyroxine Sodium [Synthroid] 75 mcg PO QAMAC 06/03/16 [History Confirmed Last Taken 01/26/18] Magnesium Hydroxide [Milk of Magnesia] 30 ml PO Q72H PRN 06/03/16 [History Confirmed 01/28/18 Last Taken Unknown] Magnesium Oxide 400 mg PO BID 06/03/16 [History Confirmed 01/28/18 Last Taken Unknown] Metoprolol Succinate [Toprol Xl] 50 mg PO DAILY 06/03/16 [History Confirmed Last Taken 01/26/18] NIFEdipine [Nifedical Xl] 60 mg PO DAILY 06/03/16 [History Confirmed 01/28/18 Last Taken 01/26/18] Nitroglycerin [Nitrostat] 0.4 mg SL Q5M PRN 06/03/16 [History Confirmed Last Taken Unknown] Potassium Chloride [Kdur] 10 meq PO BIDCC 06/03/16 [History Confirmed 01/28/18 Last Taken 01/26/18] Simvastatin [Zocor] 20 mg PO HS 06/03/16 [History Confirmed 01/28/18 Last Taken 01/26/18] cloNIDine HCL [Catapres] 0.2 mg PO TID 06/03/16 [History Confirmed 01/28/18 Last Taken 01/26/18] traMADol [Ultram] 50 mg PO HS 06/03/16 [History Confirmed 01/28/18 Last Taken ] Acetaminophen [Non-Aspirin] 325 mg PO PRN PRN 01/28/18 [History Confirmed Last Taken 01/27/18] Albuterol Sulfate [Proair Hfa] 2 puff IH Q6HP PRN 01/28/18 [History Confirmed Last Taken Unknown] Bisacodyl [Dulcolax] 10 mg NE PRN PRN 01/28/18 [History Confirmed 01/28/18 Last Taken Unknown] Meloxicam 15 mg PO DAILY 01/28/18 [History Confirmed 01/28/18 Last Taken Unknown ] Pantoprazole [Protonix] 40 mg PO QAMAC 01/28/18 [History Confirmed 01/28/18 Last Taken 01/26/18] metFORMIN HCL [Metformin HCl ER] 500 mg PO BIDCC 01/28/18 [History Confirmed Last Taken 01/27/18 06:00] Medical - DS: Hosp Hospital course: Ms. De La Rosa is a 77 year old Female who is a resident of [facility] presents to the ER today for evaluation of redness in the right leg. The patient notes that she has not been feeling well for the last 2 weeks. She notes that her leg has been bothering her, it was red and swollen. She was seen by her doctor at the [facility], who prescribed her antibiotics. It is likely that the antibiotic was Bactrim. The patient condition improved with treatment. The antibiotic was finished 3 days ago. Since this morning the patient's leg has been swollen and the patient's leg has increased erythema as well as increased warmth to touch. The patient was therefore sent to the ER for further evaluation. The patient denies any other acute symptoms. She has chronic headaches, no changes in vision or hearing no difficulty in swallowing denies any chest pain or shortness of breath she had some nausea and vomiting, no blood in the vomitus. She denies any diarrhea, has constipation notes has not passed bowel movements for a few days. She denies any urinary complaints. She has swelling in both lower extremities right more than the left, erythema on the right leg. No acute joint pains no acute skin rashes no new psychiatric complaints. Patient's daughter was by the bedside. Patient's POST form noted that the patient was DNR, however the patient's daughter noted that the patient did not wish to be DNR but wants to be full code. Patient will be treated as full code for now. In the emergency room patient was afebrile and had stable vital signs. Patient WC count was 10.8, hemoglobin 13 platelet 185. Left lites were stable creatinine 0.9 glucose 168. Patient had elevated lactic acid of 2.3. Ultrasound of the right lower extremity was negative for DVT. Given that the patient had failed outpatient treatment with Bactrim and the patient had worsening cellulitis the patient is being admitted to the hospital for further management January 28 Patient seen and examined, no acute overnight events, cellulitis in the leg is much improved. Lactic acid is normal now. Patient much more awake this morning tolerating p.o. diet well still did not have bowel movements taking MiraLAX at this point. TSH is elevated at 7.67, patient is on levothyroxine. january 29 pt seen examined, no acute overnight issues, pt lying in bed comfortable, reading a news paper She has still not had a bowel movement, plan to get x ray and give magnesium citrate to see if this helps patient labs improving cellulitis of RLE has resolved Patient had a good BM after Mag citrate January 30: Patient is back to baseline and stable. Will discharge to [facility] as agreed upon by patient. Discharge diagnosis: Cellulitis RLE Secondary discharge diagnosis: HTN Reason for admission: RLE cellulitis - Time Spent with Patient Total time spent providing and/or coordinating discharge services: Less than 30 minutes Medical - DS: Exam - Constitutional Vitals: Vital Signs Temp Pulse Resp BP BP Pulse Ox 01/30/18 07:49 96.6 F L 16 128/82 96 01/30/18 04:00 97.5 F 55 L 16 163/86 97 01/29/18 23:53 97.7 F 53 L 16 166/79 95 01/29/18 20:00 97.4 F 69 18 158/82 96 01/29/18 16:00 97 F 16 124/60 96 01/29/18 11:56 96.8 F L 16 148/92 97 Intake and Output 01/29/18 01/30/18 01/30/18 21:59 05:59 13:59 Intake Total 390 / 390 200 / 200 Output Total 2 / 2 Balance 388 / 388 200 / 200 -1 / -1 Intake: IV 100 / 100 Oral 290 / 290 200 / 200 Output: # of times incontinent of urine Other: Meal Dinner Percent of Meal Consumed 25% Feeding Ability Assist with Tray Set Up Stool Size Large Stool Color Brown Black Stool Consistency Formed Liquid Loose # Voids 0 # of times incontinent of 1 Bowels Weight 162 lb 8 oz General appearance: no acute distress - Respiratory Respiratory exam: Present: normal respiratory exam - Cardiovascular Cardiovascular exam: Present: normal rate and rhythm - GI/Abdominal GI/Abdominal exam: Present: normal bowel sounds - Extremities Exam Extremities exam: Present: normal inspection Medical - DS: Data Labs on day of discharge: Labs from last 24 hours 01/30/18 01/30/18 04:40 04:40 WBC 3.7 L RBC 4.13 Hgb 11.9 L Hct 35.1 L MCV 84.8 MCH 28.7 MCHC 33.9 RDW 15.9 H Plt Count 171 MPV 8.1 Gran % 64.1 Lymph % (Auto) 21.3 [place] % (Auto) 10.3 Eos % (Auto) 3.8 Baso % (Auto) 0.5 Gran # 2.4 Lymph # (Auto) 0.8 L [place] # (Auto) 0.4 Eos # (Auto) 0.1 Baso # (Auto) 0 Sodium 137 Potassium 4.2 Chloride 101 Carbon Dioxide 23 Anion Gap 13.0 BUN 15 Creatinine 0.6 GFR Calculation 87 Glucose 101 Uric Acid 4.5 Calcium 8.5 L Phosphorus 2.6 L Magnesium 2.7 H Total Bilirubin 0.3 Direct Bilirubin < 0.2 GGT 11 AST 16 ALT 11 Alkaline Phosphatase 47 Lactate Dehydrogenase 201 Total Protein 5.9 Albumin 3.5 Globulin 2.4 Albumin/Globulin Ratio 1.5 Triglycerides 89 Preliminary micro results at discharge 01/27/18 18:30 Blood Culture - Preliminary Blood 01/27/18 18:20 Blood Culture - Preliminary Blood Medical - DS: A/P - Patient/Caregiver Discharge Instructions Activity: as per physical therapy Diet: Regular Diet - Follow up Plan Follow up with: Vanessa Wills [Primary Care Provider] - Disposition: er SNF Prognosis: Fair Rehab Potential: Good I certify that the patient requires SNF services: Yes Overall status at discharge: patient is progressing back to baseline Medical - DS: Qual - VTE Deep Vein Thrombosis/Pulmonary Embolism Present on Admission: No
== END 2018-01-30 12:30 | DRG 603 ==
LOC: ED 17:48 → MEDSUR 21:02
PROVIDERS: ADMIT Internal Medicine; ATTEND Specialist